=== PATIENT | female | born 1965 | race Caucasian/White ===

== ENCOUNTER → 2017-01-14 | Outpatient (CLI) | payer OTHER ==
[~2017-01-14] MED LIST: ACETAMINOPHEN PO; ALBUTEROL MININEB NEB; AMITRIPTYLINE H50 MG PO; ATIVAN PO; BACTRIM DS TABL1 TA1 PO; CATAPRES0.1 MG PO; COMPAZINE10 M1 PO; DESYREL50 M1 PO; DESYREL50 MG PO; EPIPEN0.3 MG/0.1 IM; FOLIC ACID1 MG PO; HYDROCODON-ACE1 EAC1 PO; KCL; LASIX PO; LEVOTHROID100 MC1 PO; LEXAPRO PO; LOMOTIL TABLET1 TAB PO; LOPERAMIDE HCL2 M1 PO; LORTAB 7.5-5001 TAB PO; MILK OF MAGNESIA PO; MULTIVITAMIN1 UDCAP PO; NORCO 7.5-3251 EACH PO; OXYGEN; PHENERGAN PO; POTASSIUM PO; PREVACID PO; PRILOSEC20 MG PO; PRINIVIL20 M1 PO; REMERON15 MG PO; SEROQUEL XR150 MG PO; SEROQUEL25 MG PO; SEROQUEL50 MG PO; SYNTHROID0.15 MG PO; SYNTHROID75 MCG PO; TRAZODONE HCL100 MG PO; VITAMIN B-1000 MCG/1 IJ; VITAMIN B-1100 M1 PO; VITAMIN B-121000 MCG PO; VITAMIN D50000 UNIT PO; XANAX1 MG PO; ZOFRAN PO; [UNRECOGNIZED DRUG - OTHER] PO
[2017-01-14 10:51] LABS: PROTHROMBIN TIME (PATIENT) 10.8 SECONDS (9.6-11.5)
== END | disposition home or self-care (01) ==
LOC: CLAB 09:57
DX: I63.9 Cerebral infarction, unspecified (principal)
CPT/HCPCS: 36415; 85610

== ENCOUNTER → 2017-02-10 | Outpatient (CLI) | payer OTHER ==
[2017-02-10 10:41] LABS: INR 1.5
[2017-02-10 10:45] LABS: PROTHROMBIN TIME (PATIENT) 16.5 SECONDS (9.6-11.5)
== END | disposition home or self-care (01) ==
LOC: CLAB 10:03
DX: Z51.81 Encounter for therapeutic drug level monitoring (principal); Z79.01 Long term (current) use of anticoagulants; Z86.73 Personal history of transient ischemic attack (TIA), and cerebral infarction without residual deficits
CPT/HCPCS: 36415; 85610

== ENCOUNTER → 2017-04-10 | Outpatient (CLI) | payer OTHER ==
[2017-04-10 11:46] LABS: HEMATOCRIT 37.5 % (35.0-45.0); HEMOGLOBIN 12.2 gm/dL (12.0-16.0); MEAN CELL VOLUME 90.1 FL (83-96); MEAN CORPUSCULAR HEMOGLOBIN 29.2 PG (28-34); MEAN CORPUSCULAR HGB CONC 32.4 g/dL (30-36); RED BLOOD COUNT 4.16 X10e (3.90-5.30); RED CELL DISTRIBUTION WIDTH 14.2 % (11.0-15.5)
[2017-04-10 12:35] LABS: ALBUMIN SERUM 2.8 g/dL (3.5-5.0); BILIRUBIN,TOTAL 0.2 mg/dL (0.2-2.0); CALCIUM SERUM 8.3 mg/dL (8.4-10.2); CREATININE SERUM 1.8 mg/dL (0.6-1.4); GLOM FILT RATE Estimated 31.6 mL/min (>60); PROTEIN TOTAL SERUM 6.4 g/dL (6.0-8.3)
== END | disposition home or self-care (01) ==
LOC: CLAB 11:25
DX: I63.9 Cerebral infarction, unspecified (principal)
CPT/HCPCS: 36415; 80053; 85027; 85610

== ENCOUNTER → 2017-05-12 | Outpatient (CLI) | payer OTHER ==
[2017-05-12 13:03] LABS: PROTHROMBIN TIME (PATIENT) 69.7 SECONDS (10.0-11.7)
[2017-05-12 13:05] LABS: INR 6.4
== END | disposition home or self-care (01) ==
LOC: CLAB 11:19
DX: I63.9 Cerebral infarction, unspecified (principal)
CPT/HCPCS: 36415; 85610

== ENCOUNTER → 2017-05-15 | Outpatient (CLI) | payer OTHER ==
[2017-05-15 12:02] LABS: INR 1.4
[2017-05-15 12:05] LABS: PROTHROMBIN TIME (PATIENT) 15.3 SECONDS (10.0-11.7)
== END | disposition home or self-care (01) ==
LOC: CLAB 10:58
DX: Z51.81 Encounter for therapeutic drug level monitoring (principal); I63.9 Cerebral infarction, unspecified
CPT/HCPCS: 36415; 85610

== ENCOUNTER → 2017-05-26 | Outpatient (CLI) | payer OTHER ==
[2017-05-26 11:09] LABS: INR 2.6
[2017-05-26 11:20] LABS: PROTHROMBIN TIME (PATIENT) 28.7 SECONDS (10.0-11.7)
== END | disposition home or self-care (01) ==
LOC: CLAB 10:31
DX: I63.9 Cerebral infarction, unspecified (principal)
CPT/HCPCS: 36415; 85610